=== PATIENT | male | born 1965 | race Caucasian/White ===

== ENCOUNTER 2023-08-23 09:11 | Day surgery (SDC) | payer BC ==
[~2023-08-23] VITALS: Ht 167.6 cm; Wt 68.9 kg
[~2023-08-23 09:11] MED LIST: DOXE10CA PO; LOVE1INJ SC; METF500T13 PO; NS 1,000 ML IV ONE; OMEP40CA4 PO; PRAV40TA2 PO; SEMA0.257 SQ; TOUJ1.2I SC; WARF-23 PO; lispro insulin SQ
[2023-08-23] MEDS ORDERED: LIDOCAINE 2% 100MG/5ML SDV (FOR ANES.) As Ordered ONE (12:03)
[2023-08-23] MEDS ORDERED: propofoL 200 MG/20 ML VIAL As Ordered ONE (12:03)
[2023-08-23] MEDS ORDERED: fentaNYL 100 MCG/2 ML INJECTION As Ordered ONE (12:03)
[2023-08-23 12:16] VITALS: TEMP 97.8
[2023-08-23 12:33] VITALS: BP 143/90; O2SAT 99
== END 2023-08-23 12:49 | disposition home or self-care (01) ==
LOC: M OPP 09:11
PROVIDERS: ATTEND Internal Medicine Gastroenterology
DX: K29.70 Gastritis, unspecified, without bleeding (principal); K22.89 Other specified disease of esophagus; K44.9 Diaphragmatic hernia without obstruction or gangrene; K21.00 Gastro-esophageal reflux disease with esophagitis, without bleeding; K22.10 Ulcer of esophagus without bleeding; G47.9 Sleep disorder, unspecified; E11.9 Type 2 diabetes mellitus without complications; Z79.01 Long term (current) use of anticoagulants; Z79.02 Long term (current) use of antithrombotics/antiplatelets; Z79.4 Long term (current) use of insulin; Z79.83 Long term (current) use of bisphosphonates; Z79.899 Other long term (current) drug therapy
CPT/HCPCS: 43239; 88305; J3010